=== PATIENT | female | born 1930 | race Caucasian/White ===

== ENCOUNTER 2016-05-27 12:21 | Day surgery (SDC) | payer MEDICARE, BC ==
[~2016-05-27] VITALS: Ht 167.6 cm; Wt 57.4 kg
== END 2016-05-27 15:49 | disposition home or self-care (01) ==
LOC: RAD.S 12:21 → EDSTATUS 14:00 → RAD.S 15:49
PROC: 0PU43JZ Supplement Thoracic Vertebra with Synthetic Substitute, Percutaneous Approach (ICD-10-PCS; principal; 2016-05-27)
PROC: 0PS43ZZ Reposition Thoracic Vertebra, Percutaneous Approach (ICD-10-PCS; principal; 2016-05-27)
DX: M48.54XA Collapsed vertebra, not elsewhere classified, thoracic region, initial encounter for fracture (principal); Z79.899 Other long term (current) drug therapy; Z88.2 Allergy status to sulfonamides

== ENCOUNTER → 2016-06-19 | Outpatient (CLI) | payer MEDICARE, BC | END | disposition home or self-care (01) | LOC: RAD.S 06-16 12:30 | PROC: 3E0S3BZ Introduction of Anesthetic Agent into Epidural Space, Percutaneous Approach (ICD-10-PCS; principal; 2016-06-19) | DX: M54.5 Low back pain (principal); M47.896 Other spondylosis, lumbar region; Z79.01 Long term (current) use of anticoagulants ==